=== PATIENT | female | born 1975 | race Caucasian/White ===

== ENCOUNTER 2023-06-01 09:48 | Day surgery (SDC) | payer BC ==
[2023-05-28 12:24] VITALS: BMI 27.4
[~2023-06-01 09:48] MED LIST: LACTATED RINGERS 1,000 ML IV SCH; LIDOCAINE 1% (10MG/ML) FOR IV START INTRADERMA PRN
[2023-06-01] MEDS ORDERED: LACTATED RINGERS 1,000 ML IV ONE (10:25)
[2023-06-01 10:45] VITALS: TEMP 98.3
[2023-06-01] MEDS ORDERED: PROPOFOL 10 MG/ML 20 ML VIAL IV ONE (11:39)
--- NOTE | 2023-06-01 11:53 | P.PCN ---
Date of Procedure: 06/01/23 Procedure(s) Performed: BRIEF HISTORY: Patient is a 48-year-old pleasant white female scheduled for an elective colonoscopy as a part of evaluation of change in bowel habits. PROCEDURE PERFORMED: Colonoscopy. PREOPERATIVE DIAGNOSIS: Change in bowel habits. IV sedation per Anesthesia. PROCEDURE: After informed consent was obtained, the patient, was brought into the endoscopy unit. IV sedation was administered by Anesthesia under continuous monitoring. Digital rectal examination was normal. Initially the Olympus CF-160 flexible video colonoscope was then inserted in the rectum, gradually advanced into the cecum without any difficulty. Careful examination was performed as the scope was gradually being withdrawn. Ileocecal valve and the appendiceal orifice were visualized and appeared normal. Prep was excellent. Mucosa of the cecum, ascending colon, transverse colon, descending colon, sigmoid colon, and rectum appeared normal. Retroflexion was performed in the rectum and small internal hemorrhoids were seen. The patient tolerated the procedure well. IMPRESSION: Normal-appearing colon from rectum to cecum with no evidence of colorectal neoplasia Small internal hemorrhoids . RECOMMENDATIONS: Findings of this examination were discussed with the patient as well as a family. She was advised to continue with a high-fiber diet and take osmotic laxatives as needed. Recommend repeat screening colonoscopy in 10 years..
[2023-06-01 12:57] VITALS: BP 112/74; PULSE 78; RESP 18
== END 2023-06-01 12:59 | disposition home or self-care (01) ==
LOC: ORWHC2ENDO 09:48
PROVIDERS: ATTEND Internal Medicine Gastroenterology
DX: K64.8 Other hemorrhoids (principal); I10 Essential (primary) hypertension; Z87.891 Personal history of nicotine dependence; Z79.899 Other long term (current) drug therapy
CPT/HCPCS: 81025; 45378; J2704